=== PATIENT | male | born 1990 | race Caucasian/White ===

== ENCOUNTER 2020-04-13 09:59 | Emergency (ER) | payer OTHER ==
[2020-04-13] MEDS ORDERED: METHYLPREDNISOLONE INJ 125 MG/2 ML SDV IV ONE (10:12)
[2020-04-13] MEDS ORDERED: FAMOTIDINE INJ/PF 20 MG/2 ML SDV IV ONE ×2 (10:12→12:39)
[2020-04-13] MEDS ORDERED: EPINEPHRINE INJ/PF 1 MG/1 ML AMPULE IM ONE (10:13)
--- NOTE | 2020-04-13 10:18 | ER Document Report ---
ED Medical Screen (RME) - General Chief Complaint: Allergic Reaction Stated Complaint: POSSIBLE ALLERGIC REACTION Time Seen by Provider: 04/13/20 10:10 Mode of Arrival: Medic Information source: Patient Notes: 30-year-old male presented to ED for allergic reaction to ant bites. He does have ant bites to the back and neck back abdomen chest arms and legs. He does have swelling to the face around the mouth nose and below the eyes with redness. He does not have a completely compromised airway but it is some swelling to the mouth. He states he is not short of breath at this time. Lungs are clear at this time. Will order Solu-Medrol Pepcid and epinephrine at this time. He does have an IV in place. I have greeted and performed a rapid initial assessment of this patient. A comp rehensive ED assessment and evaluation of the patient, analysis of test results and completion of medical decision making process will be conducted by an additional ED providers. Physical Exam - Vital signs Vitals: Temp Pulse Resp BP Pulse Ox 97.9 F 73 18 111/68 100 04/13/20 10:04 04/13/20 10:04 04/13/20 10:04 04/13/20 10:04 04/13/20 10:04 Course - Vital Signs Vital signs: Temp Pulse Resp BP Pulse Ox 97.9 F 73 18 111/68 100 04/13/20 10:04 04/13/20 10:04 04/13/20 10:04 04/13/20 10:04 04/13/20 10:04
[2020-04-13] MEDS ORDERED: NORMAL SALINE 1000 ML 1,000 ML IV ONE (10:38)
[2020-04-13] MEDS ORDERED: ONDANSETRON HCL INJ/PF 4 MG/2 ML SDV IV ONE (10:53)
--- NOTE | 2020-04-13 11:50 | ER Document Report ---
Entered by ASAD OSORIO SCRIBE 04/13/20 1042 Acting as scribe for:JOSE LOZADA MD ED Allergic Reaction - General Chief Complaint: Allergic Reaction Stated Complaint: POSSIBLE ALLERGIC REACTION Time Seen by Provider: 04/13/20 10:10 Mode of Arrival: Medic Information source: Patient Notes: This 30 year old male patient presents to the emergency department today with complaints of an allergic reaction to black ant bites just prior to arrival. Patient works as an [employer] worker and his work truck got stuck, he got out to look at the truck and did not notice he was standing in ants. Patient states by the time he noticed he was getting bit he was covered in them from head to toe. Patient has never reacted to ant bites in the past. Patient began having itch ing all over, he noticed a rash diffusely spread across his body, chest tightness, and an itchy throat with some vague anterior neck pain. Patient was never short of breath, he denies any throat swelling. - Related Data Allergies/Adverse Reactions: No Known Allergies Allergy (Verified 04/13/20 10:23) Past Medical History - General Information source: Patient - Social History Smoking Status: Current Every Day Smoker Cigarette use (# per day): Yes - 1/4 ppd Chew tobacco use (# tins/day): No Smoking Education Provided: No Frequency of alcohol use: Occasional Drug Abuse: None Occupation: [employer] Lives with: Family Family History: Reviewed & Not Pertinent - Medical History Medical History: Negative Surgical Hx: Negative Review of Systems - Review of Systems Constitutional: No symptoms reported EENT: See HPI, Throat pain. denies: Throat swelling, Mouth swelling Cardiovascular: See HPI, Chest pain Respiratory: denies: Short of breath Gastrointestinal: No symptoms reported Genitourinary: No symptoms reported Male Genitourinary: No symptoms reported Musculoskeletal: No symptoms reported Skin: See HPI, Change in color, Lesions, Rash Hematologic/Lymphatic: No symptoms reported Neurological/Psychological: No symptoms reported -: Yes All other systems reviewed and negative Physical Exam - Vital signs Vitals: Temp Pulse Resp BP Pulse Ox 97.9 F 73 18 111/68 100 04/13/20 10:04 04/13/20 10:04 04/13/20 10:04 04/13/20 10:04 04/13/20 10:04 - Notes Notes: Physical Exam: General: Alert, appears well. HEENT: Normocephalic. Atraumatic. PERRL. Extraocular movements intact. Oropharynx clear. Dry oral mucosa. Neck: Supple. Non-tender. Respiratory: No respiratory distress. Clear and equal breath sounds bilaterally. Cardiovascular: Regular rate and rhythm. Abdominal: Normal Inspection. Non-tender. No distension. Normal Bowel Sounds. Back: No gross abnormalities. Extremities: Moves all four extremities. Upper extremities:Normal ROM. There is some erythema to the right upper extremity. Lower extremities: Normal inspection. No edema. Normal ROM. Neurological: Normal cognition. AAOx4. Normal speech. Psychological: Normal affect. Normal Mood. Skin: Diffuse urticarial rash across chest Course - Re-evaluation Re-evalutation: 04/13/20 12:39 At this time the patient states she feels much better, has no itching. He still has some erythema to the back and does have dermatographia some. The urticarial pattern on his anterior chest wall was gone now. He still has some nonelevated urticaria on the abdomen. He states these areas do not itch at this time. - Vital Signs Vital signs: Temp Pulse Resp BP Pulse Ox 98 F 73 21 H 108/66 99 04/13/20 14:01 04/13/20 10:04 04/13/20 14:01 04/13/20 14:00 04/13/20 14:01 Discharge - Discharge Clinical Impression: Allergy to ant bite, Acute urticaria Condition: Stable Disposition: HOME, SELF-CARE Additional Instructions: Insect Bites You have been bitten by an insect. These bites can cause two types of swelling: an initial swelling due to insect saliva or injected poison, and a late reaction due to your body's allergic reaction. This initial local reaction may be uncomfortable but is not dangerous. Often there's an itchy "hive" at the bite location. This is treated with antihistamines, cold compresses, and resting the affected body part. The later reaction often develops about the second day. The entire area becomes very swollen, red, itchy, and tender. This is an allergic reaction. Your body is attacking the leftover insect saliva or venom. This type of allergy is unpleasant, but not dangerous. We treat this swelling with cortisone-type medicine. Sometimes we use antibiotics if we're worried about infection. Antihistamines help with the itch. If you develop a fever, chills, a red streak, or swollen glands in the area of the bite, infection may be starting. Return at once. Acute Allergic Reaction Your symptoms are due to an allergic reaction. Allergy can cause hives, swe lling of the hands, feet, and face, hoarseness, and difficulty swallowing or breathing. It may be due to exposure to medication, animal dander, foods, infection, or insect bites. Medication is a common cause, even when prior use of this same medication caused no problems. Acute treatment may include adrenalin and antihistamines. Usually, the specific allergic agent can't be identified unless repeated episodes occur. Home treatment includes the following: (1) Stop any suspicious medications. This will be discussed with you. (2) Oral antihistamines for the next four to five days. Example, diphenhydramine (Benadryl) every four hours. (3) You may also use cimetidine (Tagamet), or famotidine (Pepcid) every four hours if diphenhydramine is not controlling itching and hives. (4) Avoid aspirin until the hives completely disappear. (5) Avoid hot baths or showers until the hives are completely gone. Call the doctor if faintness, difficulty swallowing, tightness in the chest, or wheezing occurs. Keep a small bag with Benadryl tablets, Pepcid tablets, and a Primatene Mist inhaler with you all the time in case you have another severe reaction to insect bites. Follow-up with your doctor at the OR to get a fresh EpiPen, and inquire about allergy testing. RETURN TO THE EMERGENCY ROOM IF ANY NEW OR WORSENING SYMPTOMS. I personally performed the services described in the documentation, reviewed and edited the documentation which was dictated to the scribe in my presence, and it accurately records my words and actions.
[2020-04-13 14:49] VITALS: BP 108/66
== END 2020-04-13 14:49 | disposition home or self-care (01) ==
LOC: ER 09:59
DX: L50.0 Allergic urticaria (principal); F17.210 Nicotine dependence, cigarettes, uncomplicated; W57.XXXA Bitten or stung by nonvenomous insect and other nonvenomous arthropods, initial encounter; Y99.0 Civilian activity done for income or pay
CPT/HCPCS: 99284; 96372; 96361; 96374; 96375; J0171; J2930; J2405; J7030; S0028